=== PATIENT | male | born 1965 | race Two or more races ===

== ENCOUNTER 2019-02-15 08:11 | Emergency (ER) | payer BC ==
[~2019-02-15] VITALS: Ht 154.9 cm; Wt 86.0 kg
[2019-02-15 08:39] VITALS: BP 134/89
== END 2019-02-15 13:47 | disposition home or self-care (01) ==
LOC: ER 08:36
DX: K64.9 Unspecified hemorrhoids (principal); R19.7 Diarrhea, unspecified
CPT/HCPCS: 99283